=== PATIENT | female | born 2000 | race Caucasian/White ===

== ENCOUNTER 2019-07-24 17:01 | Emergency (ER) | payer MEDICAID ==
[~2019-07-24] VITALS: Ht 152.4 cm; Wt 76.8 kg
[2019-07-24 17:20] VITALS: Ht 152.4 cm; Wt 76.8 kg
[2019-07-24 17:46] LABS: BASOPHILS 0.2 % (0-2); EOSINOPHILS 1.2 % (0-7); HEMATOCRIT 38.1 % (36.0-48.0); HEMOGLOBIN 13.6 g/dL (12-16); IMMATURE GRANULOCYTES 0.2 % (0-5); LYMPHOCYTES 26.6 % (15-50); MCH 32.4 pg (26.0-34.0); MCHC 35.7 g/dL (31.0-37.0); MCV 90.7 fL (80.0-100.0); MEAN PLATELET VOLUME 10.8 fL (7.4-10.4); MONOCYTES 6.7 % (2-11); NEUTROPHILS 65.1 % (40-80); PLATELET COUNT 272 10x3/uL (130-400); RDW 12.3 % (11.5-14.5); WBC 9.1 10x3/uL (4.8-10.8)
[2019-07-24 18:01] LABS: ALBUMIN 4.1 g/dL (3.4-5.0); ALKALINE PHOSPHATASE 57 U/L (46-116); ALT (SGPT) 13 U/L (10-68); BILIRUBIN - TOTAL 0.25 mg/dL (0.2-1.3); CALC OSMOLALITY 279 mosm/kg (275-300); CARBON DIOXIDE 26.9 mmol/L (21.0-32.0); CHLORIDE - SERUM 106 mmol/L (98-107); CREATININE - SERUM 0.7 mg/dL (0.6-1.3); GLUCOSE 70 mg/dL (74-106); POTASSIUM - SERUM 3.9 mmol/L (3.5-5.1); PROTEIN - SERUM 7.3 g/dL (6.4-8.2); SODIUM 142 mmol/L (136-145); UREA NITROGEN 9 mg/dL (7-18); eGFR NON AFRICAN AMERICAN > 90 mL/min (90-120)
[2019-07-24 18:17] LABS: APPEARANCE CLEAR (CLEAR); BILIRUBIN NEGATIVE (NEGATIVE); COLOR STRAW (YELLOW); GLUCOSE NEGATIVE (NEGATIVE); KETONE NEGATIVE (NEGATIVE); NITRITE NEGATIVE (NEGATIVE); PROTEIN NEGATIVE (NEGATIVE); UROBILINOGEN NORMAL (NORMAL)
[2019-07-24 18:19] LABS: EPITHELIAL CELLS OCC /hpf (0-5); RED CELLS - URINE 0-5 /hpf (0-5); WHITE CELLS - URINE 0-5 /hpf (NEGATIVE)
[2019-07-24 20:12] LABS: HCG SERUM NEGATIVE (NEGATIVE)
[2019-07-24] MEDS ORDERED: NAPROSYN500 MG PO (20:33)
[2019-07-24 21:03] VITALS: BP 123/78
== END 2019-07-24 21:03 | disposition home or self-care (01) ==
LOC: D.ER 17:01
PROVIDERS: Family Medicine
DX: N93.9 Abnormal uterine and vaginal bleeding, unspecified (principal)